=== PATIENT | female | born 1995 | race Caucasian/White ===

== ENCOUNTER 2016-08-21 21:22 | Emergency (ER) | payer OTHER ==
[~2016-08-21 21:22] MED LIST: IBUPROFEN800 M1 PO; PRENATAL VITAM1 EAC9 PO
[2016-08-21] MEDS ORDERED: no meds (22:29)
== END 2016-08-21 23:10 ==
LOC: EDMED 21:22
PROC: 0HQDXZZ Repair Right Lower Arm Skin, External Approach (ICD-10-PCS; principal; 2016-08-21)
DX: S51.811A Laceration without foreign body of right forearm, initial encounter (principal); W19.XXXA Unspecified fall, initial encounter; Y92.009 Unspecified place in unspecified non-institutional (private) residence as the place of occurrence of the external cause